=== PATIENT | male | born 1960 | race Caucasian/White ===

== ENCOUNTER → 2017-02-24 | Outpatient (CLI) | payer BC ==
--- NOTE | 2017-02-24 09:32 | REP ---
Left knee series: Five views. History: Pain for 4 days. Findings: Five views of the left knee demonstrate nonarticular spurring at the superior pole of the patella consistent with chronic quadriceps tendinosis or tendonitis. Bones and joint spaces are otherwise unremarkable. There is some subcutaneous and soft tissue calcifications in the proximal calf which may be dystrophic or due to venous insufficiency. No evidence of joint effusion or bony erosive change. Impression: Patellar spurring, nonarticular at the superior pole consistent with quadriceps tendonitis. Otherwise negative. Signed by Nestor Moreno MD 02/24/2017 10:16 A
== END ==
LOC: M WUC 08:57
PROVIDERS: ATTEND Physician Assistant
DX: M25.761 Osteophyte, right knee (principal)

== ENCOUNTER 2017-10-10 19:05 | Emergency (ER) | payer BC ==
[2017-10-10] MEDS ORDERED: NORCO 5/325MG TABLET (BULK FOR ED) PO (23:45)
[2017-10-10] MEDS: OXYCODONE/APAP 5MG/325MG(BULK FOR ED) 1 TABLET PO (23:55)
[2017-10-10] MEDS: CLINDAMYCIN 150 MG CAP PO (23:55)
== END 2017-10-11 00:21 | disposition home or self-care (01) ==
LOC: M ED 10-11 00:21
DX: L03.116 Cellulitis of left lower limb (principal); I10 Essential (primary) hypertension; K21.9 Gastro-esophageal reflux disease without esophagitis; M54.9 Dorsalgia, unspecified; Z86.718 Personal history of other venous thrombosis and embolism; Z88.6 Allergy status to analgesic agent; Z79.899 Other long term (current) drug therapy
CPT/HCPCS: 73610

== ENCOUNTER → 2018-09-22 | Outpatient (REF) | payer BC ==
[~2018-09-22] MED LIST: CHLO125TA; CLEO300C2 PO; FLUTISP; HYDR-3715 PO; IRBE150T12; OMEP40CA2; PERC5TAB12 PO; PRED20TA PO
[2018-09-22 14:28] LABS: BLOOD UREA NITROGEN 19 MG/DL (7-18); CALCIUM LEVEL 9.1 MG/DL (8.5-10.1); CARBON DIOXIDE LEVEL 26 MEQ/L (21-32); CHLORIDE LEVEL 108 MEQ/L (98-107); CREATININE FOR GFR 1.14 MG/DL (0.70-1.30); GLOMERULAR FILTRATION RATE > 60.0 (>56); GLUCOSE, FASTING 84 MG/DL (70-100); POTASSIUM SERUM 4.1 MEQ/L (3.5-5.1); SODIUM LEVEL 141 MEQ/L (136-145); URIC ACID 9.8 MG/DL (3.5-7.2)
== END ==
LOC: M LABDRAW1 13:41
PROVIDERS: ATTEND Internal Medicine
DX: I50.30 Unspecified diastolic (congestive) heart failure (principal); I11.0 Hypertensive heart disease with heart failure; E79.0 Hyperuricemia without signs of inflammatory arthritis and tophaceous disease

== ENCOUNTER → 2018-12-08 | Outpatient (REF) | payer BC | LOC: M LABDRAW1 15:28 | PROVIDERS: ATTEND Internal Medicine | DX: M10.061 Idiopathic gout, right knee (principal) ==

== ENCOUNTER → 2019-06-19 | Outpatient (CLI) | payer BC ==
[~2019-06-19] MED LIST changes: -OMEP40CA2; +OMEP40CA97
[2019-06-19 13:45] LABS: BLOOD UREA NITROGEN 18 MG/DL (7-18); CALCIUM LEVEL 9.2 MG/DL (8.5-10.1); CARBON DIOXIDE LEVEL 23 MEQ/L (21-32); CHLORIDE LEVEL 108 MEQ/L (98-107); GLOMERULAR FILTRATION RATE > 60.0 (>56); GLUCOSE, FASTING 94 MG/DL (70-100); POTASSIUM SERUM 4.3 MEQ/L (3.5-5.1); SODIUM LEVEL 141 MEQ/L (136-145); URIC ACID 4.4 MG/DL (3.5-7.2)
== END ==
LOC: M PLALAB 09:17
DX: M10.9 Gout, unspecified (principal)

== ENCOUNTER → 2020-07-04 | Outpatient (CLI) | payer SELFPAY ==
[~2020-07-04] MED LIST changes: -IRBE150T12; +IRBE150T7
== END ==
LOC: M LABSMTC 14:10
PROVIDERS: ATTEND Pediatrics
DX: Z20.822 Contact with and (suspected) exposure to COVID-19 (principal)

== ENCOUNTER → 2020-07-11 | Outpatient (CLI) | payer SELFPAY | LOC: M LABSMTC 09:30 | PROVIDERS: ATTEND Pediatrics | DX: Z20.822 Contact with and (suspected) exposure to COVID-19 (principal) ==

== ENCOUNTER → 2020-08-26 | Outpatient (CLI) | payer SELFPAY | LOC: M LABSMTC 09:37 | PROVIDERS: ATTEND Pediatrics | DX: Z11.52 Encounter for screening for COVID-19 (principal) ==

== ENCOUNTER → 2022-12-18 | Outpatient (CLI) | payer BC ==
[~2022-12-18] MED LIST changes: +FLUT50SP17; -FLUTISP; +OMEP40CA4; -OMEP40CA97
== END ==
LOC: M RAD 08:36
PROVIDERS: ATTEND Internal Medicine
DX: M16.11 Unilateral primary osteoarthritis, right hip (principal)

== ENCOUNTER → 2023-11-22 | Outpatient (REF) | payer BC ==
[~2023-11-22] MED LIST changes: -FLUT50SP17; +FLUTISP; +IRBE150T27; -IRBE150T7
[2023-11-22 18:26] LABS: CHOLESTEROL RISK RATIO 2.66 (<5); HDL CHOLESTEROL 55.5 MG/DL (>40); LDL CHOLESTEROL 82.7 MG/DL (<100); NON-HDL-C 92.5 MG/DL
== END ==
LOC: M LABWUC 16:35
PROVIDERS: ATTEND Internal Medicine Cardiovascular Disease
DX: E78.00 Pure hypercholesterolemia, unspecified (principal)

== ENCOUNTER 2024-08-02 19:50 | Emergency (ER) | payer BC ==
[~2024-08-02] VITALS: Ht 172.7 cm; Wt 92.3 kg
[2024-08-02] MEDS: MORPHINE 4 MG/ML 1ML VIAL IV ONE ×2 (20:28→22:03)
[2024-08-02] MEDS: diazePAM 10MG/2ML SYRINGE IV ONE (21:27)
[2024-08-02] MEDS: NS (Normal Saline) 0.9% 1,000 ML IV SCH (22:23)
[2024-08-02] MEDS: ONDANSETRON 4MG 2ML VIAL IV ONE (22:33)
[2024-08-02] MEDS: MIDAZOLAM INJ 2MG/2ML VIAL IV STA (22:33)
[2024-08-02] MEDS: propofoL 200 MG/20 ML VIAL IV.PROC PRN (22:34)
[2024-08-02 22:44] VITALS: TEMP 97.3
[2024-08-02 23:30] VITALS: O2SAT 95
[2024-08-02 23:40] VITALS: BP 127/74
== END 2024-08-02 23:52 | disposition home or self-care (01) ==
LOC: M ED 19:50 → EDBD 19:50 → M ED 23:52
DX: T84.020A Dislocation of internal right hip prosthesis, initial encounter (principal); Y82.8 Other medical devices associated with adverse incidents; I10 Essential (primary) hypertension; Z98.890 Other specified postprocedural states; K21.9 Gastro-esophageal reflux disease without esophagitis; Z88.6 Allergy status to analgesic agent
CPT/HCPCS: 27265; 73502; 73700; 93041; 94760; 96374; 96375; 96376; 99152; 99285; J2250; J2405; J3360